=== PATIENT | female | born 1935 | race Caucasian/White ===

== ENCOUNTER 2016-08-30 12:33 | Outpatient (CLI) | payer OTHER ==
--- NOTE | 2016-08-30 13:46 | DIAGNOSTIC IMAGING REPORT ---
PROCEDURE: MG BILATERAL SCREENING W/CAD INDICATION: Screening. Family history breast carcinoma (mother and sister). TECHNIQUE: Bilateral CC and MLO digital views. COMPARISON: Compared to 07/28/2015, 05/06/2014, and 04/16/2013. FINDINGS: Computer-aided detection applied. Mildly dense with a few dystrophic calcifications. No change. IMPRESSION: 1. Negative mammogram. RESULT CODE: 1- Negative. A. A negative report should not delay biopsy if a dominant or clinically suspicious mass is present. 10-15% of cancers are not identified by x-ray. B. A negative report may reinforce clinical impression. C. Adenosis and dense breasts may obscure an underlying neoplasm. D. False positive reports average 6-10%. E.. A yearly screening mammogram is recommended. A reminder letter will be scheduled.
== END 2016-08-30 23:00 ==
LOC: MAM SRH 12:33
DX: Z12.31 Encounter for screening mammogram for malignant neoplasm of breast (principal); Z80.3 Family history of malignant neoplasm of breast

== ENCOUNTER 2017-02-01 10:09 | Outpatient (CLI) | payer OTHER ==
--- NOTE | 2017-02-01 11:00 | DIAGNOSTIC IMAGING REPORT ---
PROCEDURE: DEXA BONE DENSITY STUDY CLINICAL INDICATION: Postmenopausal, history of cancer COMPARISON: None. FINDINGS: LUMBAR SPINE: Bone mineral density 1.000 g/cm2, T score -0.4, normal. LEFT HIP: Bone mineral density 0.851 g/cm2, T score -0.7, normal. LEFT FEMORAL NECK: Bone mineral density 0.618 g/cm2, T score -2.1, osteopenia. FRACTURE RISK CALCULATION ( when applicable): 10-year fracture risk of a major osteoporotic fracture 16% and of a hip fracture 4.9% (T score greater or equal to -1.0 to: NORMAL) (T score from -1.1 to -2.4: OSTEOPENIA) (T score less than or equal to -2.5: OSTEOPOROSIS) IMPRESSION: 1. Osteopenia of the left femoral neck mildly elevates the patient's 10-year fracture risk as described.
== END 2017-02-01 23:00 ==
LOC: XR SRH 10:09
DX: M85.80 Other specified disorders of bone density and structure, unspecified site (principal)